=== PATIENT | male | born 1960 | race Caucasian/White ===

== ENCOUNTER → 2016-08-18 | Day surgery (SDC) | payer OTHER ==
[~2016-08-18] MED LIST: BUPIVACAINE/EPINEPHRINE 0.5% PF 30 ML VIAL ONE; CLINDAMYCIN PHOS 600 MG/4 ML VIAL ONE; IRBE1TAB37; KETOROLAC TROMETHAMINE 30 MG/ML (IVP) VIAL IV PUSH ONE; LACTATED RINGER'S 1000 ML INJ 1,000 ML ONE; MIDAZOLAM HCL 2 MG/2 ML VIAL ONE; ONDANSETRON HCL 4 MG/2 ML VIAL IV PUSH ONE; PROPOFOL 200 MG/20 ML AMP IV ONE; SODIUM CHLORIDE 0.9% SOLN 100 ML BAG IV ONE; VYTO10TA29
--- NOTE | 2016-08-20 05:00 | MP ---
cc: RITIKA HOWELL MD DATE OF SURGERY: 08/18/2016 PREOPERATIVE DIAGNOSIS: Right knee medial and lateral meniscus tear. POSTOPERATIVE DIAGNOSES Right knee medial and lateral meniscus tear. PROCEDURE Right knee arthroscopic partial medial and lateral meniscectomy. SURGEON Dr. Ritika Howell ANESTHESIA General. REVIEW OF SYSTEMS Less than 10 cc TOURNIQUET TIME: Zero. COMPLICATIONS: None. JUSTIFICATION: Chavo Aleman is a 55 year-old male who injured the right knee. His condition failed conservative treatment. The patient evaluated by the undersigned at the [facility]. The patient was counseled as to the risks, benefits and alternatives to the above named surgical procedure. He did wish to proceed with surgery. PROCEDURE IN DETAIL A written consent was obtained. The patient identified by name, taken to the operating room, placed supine on the operating room table, general anesthesia was administered as well as 600 milligrams of IV clindamycin. He does have a PENICILLIN ALLERGY. The right leg was carefully placed in a well-padded leg andrade. The right lower extremity was prepped and draped using isopropyl alcohol, Hibiclens solution and DuraPrep solution. 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 The medial compartment revealed a complex tear of the posterior horn of the medial meniscus. An arthroscopic biter and arthroscopic shaver was introduced in the medial compartment to perform partial medial meniscectomy. There was also tearing of the anterior horn which was also debrided and partial meniscectomy performed. Slight grade 2 chondromalacia of the medial femoral condyle was noted. The intercondylar notch of the anterior and posterior cruciate ligaments were noted to be intact. The lateral compartment revealed tibial evidence of meniscal tearing along the posterior horn and also mid body. The arthroscopic shaver was introduced in the lateral compartment to perform partial lateral meniscectomy. The meniscal rim was probed and noted to be stable. Minimal chondromalacia of the lateral compartment noted. At the conclusion of the surgical procedure 30 cc of half percent Marcaine with epinephrine was injected in the knee joint. The arthroscopic portal was closed with 3-0 Prolene suture. Sterile dressing applied. The patient tolerated the procedure well with no intraoperative complication noted. MD MITZI Beltrán/KEVIN /11:21 AM /4:25 AM
== END | disposition home or self-care (01) ==
LOC: ESDC 09:31
PROVIDERS: ATTEND Orthopaedic Surgery Sports Medicine
DX: S83.231A Complex tear of medial meniscus, current injury, right knee, initial encounter (principal); S83.281A Other tear of lateral meniscus, current injury, right knee, initial encounter
CPT/HCPCS: 01400; 29880; J1885; J2250; J2405; J3010; J7120